=== PATIENT | female | born 1950 | race Caucasian/White ===

== ENCOUNTER 2018-06-19 09:00 | Outpatient (RCR) | payer MEDICARE | END 2018-06-22 | LOC: PT 09:00 | PROVIDERS: ATTEND Specialist | DX: M16.11 Unilateral primary osteoarthritis, right hip (principal); M24.662 Ankylosis, left knee; M62.81 Muscle weakness (generalized); R26.9 Unspecified abnormalities of gait and mobility ==

== ENCOUNTER → 2018-07-22 | Outpatient (RCR) | payer MEDICARE | LOC: PT 06-23 09:49 | PROVIDERS: ATTEND Specialist | DX: M16.11 Unilateral primary osteoarthritis, right hip (principal); M24.662 Ankylosis, left knee; M25.562 Pain in left knee; M25.662 Stiffness of left knee, not elsewhere classified; M62.81 Muscle weakness (generalized); R26.9 Unspecified abnormalities of gait and mobility | CPT/HCPCS: 97139 ==

== ENCOUNTER 2018-08-08 08:00 | Outpatient (RCR) | payer MEDICARE | END 2018-08-22 | LOC: PT 08:00 | PROVIDERS: ATTEND Specialist | DX: M16.11 Unilateral primary osteoarthritis, right hip (principal); M24.662 Ankylosis, left knee; M25.562 Pain in left knee; M25.662 Stiffness of left knee, not elsewhere classified; M62.81 Muscle weakness (generalized); R26.9 Unspecified abnormalities of gait and mobility | CPT/HCPCS: 97139 ==